=== PATIENT | male | born 1975 | race Caucasian/White ===

== ENCOUNTER 2020-02-12 08:54 | Emergency (ER) | payer BC, OTHER ==
[2020-02-12 09:00] VITALS: BP 157/86; PULSE 107; TEMP 97.8; BMI 43.2
[2020-02-12] MEDS ORDERED: DIPHTH,PERTUSS(ACELL),TET 0.5 ML DISP.SYRIN IM ONE ×2 (09:31→09:58)
== END 2020-02-12 10:09 | disposition home or self-care (01) ==
LOC: JERFT 08:54
PROC: 0HQ1XZZ Repair Face Skin, External Approach (ICD-10-PCS; principal; 2020-02-12)
PROC: 3E0234Z Introduction of Serum, Toxoid and Vaccine into Muscle, Percutaneous Approach (ICD-10-PCS; 2020-02-12)
DX: S01.412A Laceration without foreign body of left cheek and temporomandibular area, initial encounter (principal)
CPT/HCPCS: 90715; 99284-25

== ENCOUNTER 2020-02-19 12:23 | Emergency (ER) | payer OTHER | END 2020-02-19 13:50 | disposition home or self-care (01) | LOC: JERFT 12:23 | DX: Z48.02 Encounter for removal of sutures (principal) | CPT/HCPCS: 99281-25 ==